=== PATIENT | female | born 1970 | race Caucasian/White ===

== ENCOUNTER 2017-06-19 12:35 | Emergency (ER) | payer MEDICAID, SELFPAY ==
[~2017-06-19] VITALS: Ht 167.6 cm; Wt 77.1 kg
[2017-06-19] MEDS ORDERED: ULTRAM PO STA (13:17)
[2017-06-19] MEDS ORDERED: ULTRAM ONE (13:17)
--- NOTE | 2017-06-19 13:22 | ER.PDOC ---
General Chief Complaint: Wound Recheck/Suture Removal Stated Complaint: WOUND CHECK,ABDOMINAL PAIN Time seen by MD: 13:18 Source: patient Exam Limitations: no limitations History of Present Illness Initial Procedure Done In ER: Had hysterectomy 11 days ago in [place]. Ran out od pain medication. Treated In Another ED/Practice: Yes Symptoms Since Procedure: pain (at incision sites) Allergies: Coded Allergies: No Known Allergies (Unverified , 06/19/17) Past Medical History Surgical History: appendectomy, hysterectomy, tubal LMP (females 10-50): hysterectomy Social History Smoking: less than 1 pack/day Alcohol Use: occassionally Drug Use: marijuana Respiratory: no symptoms reported Gastrointestinal: see HPI Genitourinary: no symptoms reported All Other Systems: Reviewed and Negative Physical Exam General Appearance: alert, no distress Neuro/Vascular/Tendon: no vascular compromise, sensation nml, no tendon injury , nml ROM Skin: no infection, healing wound Neck/Back: nml inspection, non-tender, painless ROM Respiratory: chest non-tender, no resp. distress, breath sounds nml CVS: reg. rate & rhythm, heart sounds nml Abdomen: no organomegaly, other (mild tendernesswithout guarding, no wound redness or discharge) Departure Time of Disposition: 13:20 Disposition: 01 HOME, SELF-CARE Impression: Primary Impression: Encounter for postoperative wound check Condition: Stable Referrals: UNDEFINED,PHYSICIAN (PCP) PRIMARY CARE PROVIDER Additional Instructions: Tramadol F/U with your PCP this week as scheduled DAWIT PANTOJA MD Jun 19, 2017 13:22
== END 2017-06-19 13:30 | disposition home or self-care (01) ==
LOC: ER 12:35
DX: G89.18 Other acute postprocedural pain (principal); F17.200 Nicotine dependence, unspecified, uncomplicated; F12.10 Cannabis abuse, uncomplicated; Z98.890 Other specified postprocedural states; Z90.710 Acquired absence of both cervix and uterus
CPT/HCPCS: 99283

== ENCOUNTER 2019-01-24 15:14 | Emergency (ER) | payer OTHER ==
[~2019-01-24] VITALS: Ht 167.6 cm; Wt 81.6 kg
[2019-01-24 15:37] VITALS: BP 122/69
--- NOTE | 2019-01-24 15:38 | NUR ---
Triage Brought to ER room 7 and monitors applied. C/O right hand pain after having a bad dream and waking up with it twisted up "like it was having a seizure". Vital signs within normal limits. No obvious swelling in the hand. Notified doctor of patient's arrival. Will f/u with further orders. lw
[2019-01-24] MEDS ORDERED: NUBAIN IM STA (16:00)
[2019-01-24] MEDS ORDERED: ZOFRAN ODT SL STA (16:00)
--- NOTE | 2019-01-24 16:00 | ER.PDOC ---
General Chief Complaint: Extremities Stated Complaint: RIGHT HAND PAIN TRAVEL OUT OF US: No Time seen by MD: 16:00 Source: patient Exam Limitations: no limitations History of Present Illness Timing/Duration: 1 week Severity: mild Modifying Factors: improves with movement, improves with rest Allergies: Coded Allergies: No Known Allergies (Unverified , 06/19/17) Past Medical History Medical History: cardiac problems, thyroid disease, other Surgical History: appendectomy, cholecystectomy, hysterectomy, tubal LMP (females 10-50): hysterectomy Social History Smoking: cigarettes, less than 1 pack/day Alcohol Use: none Drug Use: none Reviewed Nursing Reviewed: Vital Signs, Abn. 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 NML as Tested Skin: Normal Color Lymphatic: No Adenopathy Results/Orders Results/Orders Vital Signs Date Time Temp Pulse Resp B/P (MAP) Pulse Ox O2 Delivery O2 Flow Rate FiO2 01/24/19 15:37 98.0 70 16 122/69 (86) 98 Room Air 98.0 01/24/19 15:37 68 14 01/24/19 15:27 98.0 70 16 98 Room Air 98.0 Progress Progress PATIENT DECLINED SPLINT Course Vitals & review Data Vital Sign - Last 24 Hours 01/24/19 01/24/19 01/24/19 15:27 15:37 15:37 Temp 98.0 98.0 98.0 98.0 Pulse 70 68 70 Resp 16 14 16 B/P (MAP) 122/69 (86) Pulse Ox 98 98 O2 Delivery Room Air Room Air Sepsis Infection Criteria Pres: None O2 Sat by Pulse Oximetry: 98 Departure Time of Disposition: 16:11 Disposition: 01 HOME, SELF-CARE Impression: Primary Impression: Tenosynovitis Condition: Improved Referrals: UNDEFINED,PHYSICIAN (PCP) PRIMARY CARE PROVIDER Duration or Time Spent with Pa: 15 MIN ARIANE WELCH MD Jan 24, 2019 16:00
[2019-01-24] MEDS ORDERED: ZOFRAN ODT ONE (16:19)
[2019-01-24] MEDS ORDERED: NUBAIN ONE (16:20)
[2019-01-24 16:33] VITALS: BP 122/69
== END 2019-01-24 16:32 | disposition home or self-care (01) ==
LOC: ER 15:14
DX: M65.9 Synovitis and tenosynovitis, unspecified (principal); F17.210 Nicotine dependence, cigarettes, uncomplicated; E07.9 Disorder of thyroid, unspecified; Z90.49 Acquired absence of other specified parts of digestive tract; Z90.710 Acquired absence of both cervix and uterus
CPT/HCPCS: 96372; 99283; J2300; Q0162